=== PATIENT | female | born 1975 | race American Indian/Alaskan Native ===

== ENCOUNTER 2020-01-15 11:54 | Emergency (ER) | payer SELFPAY ==
[2020-01-15 12:47] VITALS: BP 152/96
--- NOTE | 2020-01-15 12:48 | Emergency Department Report ---
- General Chief Complaint: Upper Respiratory Infection Stated Complaint: COUGH Time Seen by Provider: 01/15/20 12:41 Source: patient Mode of arrival: Ambulatory Limitations: No Limitations - History of Present Illness Initial Comments: This is a pleasant 44-year-old female presents the emergency department chief complaint of cough, congestion, chest tightness over the past week. Patient denies any sick contacts. She denies any known past medical history, current medication use or known allergies to medications. She denies any associated fever, chills, night sweats, headache, dizziness, blurry vision, chest pain, shortness of breath, lower extremity edema, weakness, loss of taste or smell, nausea, vomiting, diarrhea or any other associated symptoms. - Related Data Previous Rx's Medication Instructions Recorded Last Taken Type RX: Hydrocodone Bit/Acetaminophen 1 each PO Q6H PRN #18 tablet 12/24/12 Unknown Rx [Lortab 10-500 mg] RX: Ibuprofen [Motrin 800 MG tab] 800 mg PO TID PRN #30 tablet 12/24/12 Unknown Rx RX: Penicillin Vk [Veetids TAB] 2 tab PO BID #40 tablet 12/24/12 Unknown Rx RX: Lidocaine Viscous 2% 20 ml MM Q6H #240 ml 12/28/12 Unknown Rx [Xylocaine Viscous 2%] Cyclobenzaprine HCl [Flexeril 5 MG 5 mg PO TID PRN #21 tab 10/17/15 Unknown Rx TAB] RX: Ibuprofen [Motrin 800 MG tab] 800 mg PO Q8HR PRN #30 tablet 10/17/15 Unknown Rx RX: predniSONE [Deltasone] 20 mg PO QDAY #10 tab 10/17/15 Unknown Rx Prednisone [predniSONE 10 mg 10 mg PO .TAPER #1 tab.ds.pk 01/15/20 Unknown Rx (6-Day Pack, 21 Tabs)] RX: Albuterol Sulfate [Proair 90 mcg IH Q6HR #1 aer.pow.ba 01/15/20 Unknown Rx Respiclick] RX: Azithromycin [Zithromax Z-JENNIFER] 0 mg PO DAILY #1 tab 01/15/20 Unknown Rx Allergies Allergy/AdvReac Type Severity Reaction Status Date / Time No Known Allergies Allergy Verified 12/28/12 11:58 ED Review of Systems ROS: Stated complaint: COUGH Other details as noted in HPI Comment: All other systems reviewed and negative Constitutional: denies: chills, fever Eyes: denies: eye pain, eye discharge, vision change ENT: denies: ear pain, throat pain Respiratory: see HPI, cough, wheezing. denies: shortness of breath Cardiovascular: denies: chest pain, palpitations Endocrine: no symptoms reported Gastrointestinal: denies: abdominal pain, nausea, diarrhea Genitourinary: denies: urgency, dysuria, discharge Musculoskeletal: denies: back pain, joint swelling, arthralgia Skin: denies: rash, lesions Neurological: denies: headache, weakness, paresthesias Psychiatric: denies: anxiety, depression Hematological/Lymphatic: denies: easy bleeding, easy bruising ED Past Medical Hx - Past Medical History Previous Medical History?: No - Surgical History Past Surgical History?: No - Social History Smoking Status: Current Every Day Smoker Substance Use Type: None - Medications Home Medications: Home Medications Medication Instructions Recorded Confirmed Last Taken Type RX: Hydrocodone Bit/Acetaminophen 1 each PO Q6H PRN #18 tablet 12/24/12 Unknown Rx [Lortab 10-500 mg] RX: Ibuprofen [Motrin 800 MG tab] 800 mg PO TID PRN #30 tablet 12/24/12 Unknown Rx RX: Penicillin Vk [Veetids TAB] 2 tab PO BID #40 tablet 12/24/12 Unknown Rx RX: Lidocaine Viscous 2% 20 ml MM Q6H #240 ml 12/28/12 Unknown Rx [Xylocaine Viscous 2%] Cyclobenzaprine HCl [Flexeril 5 MG 5 mg PO TID PRN #21 tab 10/17/15 Unknown Rx TAB] RX: Ibuprofen [Motrin 800 MG tab] 800 mg PO Q8HR PRN #30 tablet 10/17/15 Unknown Rx RX: predniSONE [Deltasone] 20 mg PO QDAY #10 tab 10/17/15 Unknown Rx Prednisone [predniSONE 10 mg 10 mg PO .TAPER #1 tab.ds.pk 01/15/20 Unknown Rx (6-Day Pack, 21 Tabs)] RX: Albuterol Sulfate [Proair 90 mcg IH Q6HR #1 aer.pow.ba 01/15/20 Unknown Rx Respiclick] RX: Azithromycin [Zithromax Z-JENNIFER] 0 mg PO DAILY #1 tab 01/15/20 Unknown Rx ED Physical Exam - General Limitations: No Limitations General appearance: alert, in no apparent distress - Head Head exam: Present: atraumatic, normocephalic - Eye Eye exam: Present: normal appearance, PERRL, EOMI Pupils: Present: normal accommodation - ENT ENT exam: Present: normal exam, normal orophraynx, mucous membranes moist - Neck Neck exam: Present: normal inspection, full ROM. Absent: tenderness, meningismus - Respiratory Respiratory exam: Present: wheezes (Bilateral expiratory wheezes without rhonchi, no increased work of breathing). Absent: respiratory distress, rales, rhonchi, stridor - Cardiovascular Cardiovascular Exam: Present: regular rate, normal rhythm, normal heart sounds. Absent: systolic murmur, diastolic murmur, rubs, gallop - GI/Abdominal GI/Abdominal exam: Present: soft, normal bowel sounds. Absent: distended, tenderness, guarding, rebound, rigid - Extremities Exam Extremities exam: Present: normal inspection, full ROM. Absent: tenderness, calf tenderness (No posterior calf tenderness, no lower extreme edema) - Back Exam Back exam: Present: normal inspection, full ROM. Absent: tenderness, CVA tenderness (R), CVA tenderness (L), muscle spasm - Neurological Exam Neurological exam: Present: alert, oriented X3, normal gait - Psychiatric Psychiatric exam: Present: normal affect, normal mood - Skin Skin exam: Present: warm, dry, intact, normal color. Absent: rash ED Course Vital Signs 01/15/20 01/15/20 12:01 12:47 Temperature 98.8 F Pulse Rate 112 H 98 H Respiratory 16 Rate Blood Pressure 152/96 O2 Sat by Pulse 96 Oximetry ED Medical Decision Making - Radiology Data Radiology results: report reviewed XRay Report Signed Patient: ANAY BURRIS MR#: [id number] : 1975 Acct:[id number] Age/Sex: 44 / F ADM Date: 01/15/20 Loc: ED Attending Dr: Ordering Physician: KUSH TAVERA Date of Service: 01/15/20 Procedure(s): XR chest routine 2V Accession Number(s): [id number] cc: KUSH TAVERA Fluoro Time In Minutes: CHEST 2 VIEWS INDICATION: cough, congestion. COMPARISON: None FINDINGS: Support devices: None. Heart: Within normal limits. Lungs/pleura: No acute air space or interstitial disease. No pneumothorax. Additional findings: None. IMPRESSION: Normal chest x-ray Signer Name: Danie Gilbert Jr, MD Signed: 01/15/2020 1:13 PM Workstation Name: [id number] Transcribed By: TIARA Dictated By: DANIE GILBERT JR, MD Electronically Authenticated By: DANIE GILBERT JR, MD Signed Date/Time: 01/15/20 1313 - Medical Decision Making This pleasant 44-year-old female presents the emergency department chief complaint of cough. She had some mild expiratory wheezing on her exam. X-ray was clear with no signs of pneumonia. She had a low risk by Wells criteria for PE and no pleuritic pain, hypoxia. We will treat the patient with inhaler, steroid and a short course of antibiotics and recommended outpatient follow-up with her primary care doctor. Patient had no known risk for Covid exposure but was educated that we could not test for Covid and she need to follow-up with her primary care doctor for this. She is instructed to return the [facility] department he develops any change or worsening symptoms. She verbalized understand the diagnosis, treatment plan and follow-up instructions and all of her questions were answered. - Differential Diagnosis Bronchitis, pneumonia, COVID-19 Critical care attestation.: If time is entered above; I have spent that time in minutes in the direct care of this critically ill patient, excluding procedure time. ED Disposition Clinical Impression: Acute bronchitis Qualifiers: Bronchitis organism: unspecified organism Qualified Code(s): J20.9 - Acute bronchitis, unspecified Disposition: DC-01 TO HOME OR SELFCARE Is pt being admited?: No Condition: Stable Instructions: Acute Bronchitis (ED), Acute Bronchitis, Adult Prescriptions: Prednisone [predniSONE 10 mg (6-Day Pack, 21 Tabs)] 10 mg PO .TAPER #1 tab.ds.pk RX: Albuterol Sulfate [Proair Respiclick] 90 mcg IH Q6HR #1 aer.pow.ba RX: Azithromycin [Zithromax Z-JENNIFER] 0 mg PO DAILY #1 tab Referrals: [facility] [Provider Group] - 3-5 Days Forms: Work/School Release Form(ED) Time of Disposition: 13:24
--- NOTE | 2020-01-15 13:17 | XRay Report ---
CHEST 2 VIEWS INDICATION: cough, congestion. COMPARISON: None FINDINGS: Support devices: None. Heart: Within normal limits. Lungs/pleura: No acute air space or interstitial disease. No pneumothorax. Additional findings: None. IMPRESSION: Normal chest x-ray Signer Name: Danie Jimenes Jr, MD Signed: 01/15/2020 1:13 PM Workstation Name: [id number]
== END 2020-01-15 13:27 | disposition home or self-care (01) ==
LOC: ED 11:54
DX: J20.9 Acute bronchitis, unspecified (principal); F17.200 Nicotine dependence, unspecified, uncomplicated; Z79.899 Other long term (current) drug therapy
CPT/HCPCS: 71046

== ENCOUNTER 2020-07-08 17:20 | Emergency (ER) | payer SELFPAY ==
--- NOTE | 2020-07-08 20:05 | XRay Report ---
XR ankle 3+V LT, XR foot 3+V LT INDICATION / CLINICAL INFORMATION: fall. COMPARISON: None available. FINDINGS: Left ankle: No acute fracture or malalignment. Mild circumferential soft tissue swelling. Left foot: Acute mildly displaced oblique fracture involving the distal left fifth metatarsal shaft. No additional fracture. No joint malalignment. Lisfranc interval is preserved. There is soft tissue s welling about the foot. IMPRESSION: Acute left fifth metatarsal shaft fracture. Signer Name: Ramón Interiano MD Signed: 07/08/2020 8:01 PM Workstation Name: [id number]
[2020-07-08] MEDS ORDERED: ACETAMINOPHEN 500 MG TAB PO ONE (20:16)
[2020-07-08] MEDS ORDERED: IBUPROFEN 800 MG TAB PO ONE (20:16)
--- NOTE | 2020-07-08 20:17 | Emergency Department Report ---
ED Lower Extremity HPI - General Chief Complaint: Extremity Injury, Lower Stated Complaint: FALL/L FOOT INJURY Time Seen by Provider: 07/08/20 19:47 Source: patient Mode of arrival: Ambulatory Limitations: No Limitations - History of Present Illness MD Complaint: ankle injury, foot injury - Related Data Previous Rx's Medication Instructions Recorded Last Taken Type Hydrocodone Bit/Acetaminophen 1 each PO Q6H PRN #18 tablet 12/24/12 Unknown Rx [Lortab 10-500 mg] Ibuprofen [Motrin 800 MG tab] 800 mg PO TID PRN #30 tablet 12/24/12 Unknown Rx Penicillin Vk [Veetids TAB] 2 tab PO BID #40 tablet 12/24/12 Unknown Rx Lidocaine Viscous 2% [Xylocaine 20 ml MM Q6H #240 ml 12/28/12 Unknown Rx Viscous 2%] Cyclobenzaprine HCl [Flexeril 5 MG 5 mg PO TID PRN #21 tab 10/17/15 Unknown Rx TAB] Ibuprofen [Motrin 800 MG tab] 800 mg PO Q8HR PRN #30 tablet 10/17/15 Unknown Rx predniSONE [Deltasone] 20 mg PO QDAY #10 tab 10/17/15 Unknown Rx Albuterol Sulfate [Proair 90 mcg IH Q6HR #1 aer.pow.ba 01/15/20 Unknown Rx Respiclick] Azithromycin [Zithromax Z-JENNIFER] 0 mg PO DAILY #1 tab 01/15/20 Unknown Rx Prednisone [predniSONE 10 mg 10 mg PO .TAPER #1 tab.ds.pk 01/15/20 Unknown Rx (6-Day Pack, 21 Tabs)] Allergies Allergy/AdvReac Type Severity Reaction Status Date / Time No Known Allergies Allergy Verified 12/28/12 11:58 ED Review of Systems ROS: Stated complaint: FALL/L FOOT INJURY Other details as noted in HPI ED Past Medical Hx - Past Medical History Additional medical history: bronchitis - Surgical History Past Surgical History?: No - Social History Smoking Status: Current Some Day Smoker - Medications Home Medications: Home Medications Medication Instructions Recorded Confirmed Last Taken Type Hydrocodone Bit/Acetaminophen 1 each PO Q6H PRN #18 tablet 12/24/12 Unknown Rx [Lortab 10-500 mg] Ibuprofen [Motrin 800 MG tab] 800 mg PO TID PRN #30 tablet 12/24/12 Unknown Rx Penicillin Vk [Veetids TAB] 2 tab PO BID #40 tablet 12/24/12 Unknown Rx Lidocaine Viscous 2% [Xylocaine 20 ml MM Q6H #240 ml 12/28/12 Unknown Rx Viscous 2%] Cyclobenzaprine HCl [Flexeril 5 MG 5 mg PO TID PRN #21 tab 10/17/15 Unknown Rx TAB] Ibuprofen [Motrin 800 MG tab] 800 mg PO Q8HR PRN #30 tablet 10/17/15 Unknown Rx predniSONE [Deltasone] 20 mg PO QDAY #10 tab 10/17/15 Unknown Rx Albuterol Sulfate [Proair 90 mcg IH Q6HR #1 aer.pow.ba 01/15/20 Unknown Rx Respiclick] Azithromycin [Zithromax Z-JENNIFER] 0 mg PO DAILY #1 tab 01/15/20 Unknown Rx Prednisone [predniSONE 10 mg 10 mg PO .TAPER #1 tab.ds.pk 01/15/20 Unknown Rx (6-Day Pack, 21 Tabs)] ED Physical Exam - General Limitations: No Limitations ED Course Vital Signs 07/08/20 19:31 Temperature 98.6 F Pulse Rate 71 Respiratory 16 Rate Blood Pressure 175/87 O2 Sat by Pulse 100 Oximetry ED Lower Extremity MDM - Radiology Data Radiology results: report reviewed Patient: ANAY BURRIS MR#: [id number] : 1975 Acct:[id number] Age/Sex: 45 / F ADM Date: 07/08/20 Loc: ED Attending Dr: Ordering Physician: ANTONIO KEARNS MD Date of Service: 07/08/20 Procedure(s): XR ankle 3+V LT Accession Number(s): [id number] cc: ED MD URMILA Fluoro Time In Minutes: XR ankle 3+V LT, XR foot 3+V LT INDICATION / CLINICAL INFORMATION: fall. COMPARISON: None available. FINDINGS: Left ankle: No acute fracture or malalignment. Mild circumferential soft tissue swelling. Left foot: Acute mildly displaced oblique fracture involving the distal left fifth metatarsal shaft. No additional fracture. No joint malalignment. Lisfranc interval is preserved. There is soft tissue swelling about the foot. IMPRESSION: Acute left fifth metatarsal shaft fracture. Signer Name: Keren Serrato MD Signed: 07/08/2020 8:01 PM Workstation Name: [id number] Transcribed By: JS Dictated By: KEREN SERRATO MD Electronically Authenticated By: KEREN SERRATO MD Signed Date/Time: 07/08/202000 DD/ 58 TD/TT: Critical care attestation.: If time is entered above; I have spent that time in minutes in the direct care of this critically ill patient, excluding procedure time. ED Disposition Condition: Stable Referrals: PRIMARY CARE, [Primary Care Provider] - 3-5 Days
--- NOTE | 2020-07-08 20:44 | Emergency Department Report ---
ED Lower Extremity HPI - General Chief Complaint: Extremity Injury, Lower Stated Complaint: FALL/L FOOT INJURY Time Seen by Provider: 07/08/20 19:47 Source: patient Mode of arrival: Ambulatory Limitations: No Limitations - History of Present Illness Initial Comments: 45-year-old morbidly obese -[place] female presents [facility] department complaining of pain to the left foot after a trip and fall while going up a step/curb on yesterday resulting in a fall and then pain and swelling to the left foot. Pain is dull and throbbing worse with palpation range of motion. Reports no numbness or tingling. Ports no fever, chills, sweats but no head trauma no loss of consciousness - Related Data Previous Rx's Medication Instructions Recorded Last Taken Type Hydrocodone Bit/Acetaminophen 1 each PO Q6H PRN #18 tablet 12/24/12 Unknown Rx [Lortab 10-500 mg] Ibuprofen [Motrin 800 MG tab] 800 mg PO TID PRN #30 tablet 12/24/12 Unknown Rx Penicillin Vk [Veetids TAB] 2 tab PO BID #40 tablet 12/24/12 Unknown Rx Lidocaine Viscous 2% [Xylocaine 20 ml MM Q6H #240 ml 12/28/12 Unknown Rx Viscous 2%] Cyclobenzaprine HCl [Flexeril 5 MG 5 mg PO TID PRN #21 tab 10/17/15 Unknown Rx TAB] Ibuprofen [Motrin 800 MG tab] 800 mg PO Q8HR PRN #30 tablet 10/17/15 Unknown Rx predniSONE [Deltasone] 20 mg PO QDAY #10 tab 10/17/15 Unknown Rx Albuterol Sulfate [Proair 90 mcg IH Q6HR #1 aer.pow.ba 01/15/20 Unknown Rx Respiclick] Azithromycin [Zithromax Z-JENNIFER] 0 mg PO DAILY #1 tab 01/15/20 Unknown Rx Prednisone [predniSONE 10 mg 10 mg PO .TAPER #1 tab.ds.pk 01/15/20 Unknown Rx (6-Day Pack, 21 Tabs)] Acetaminophen/Codeine [Tylenol 1 tab PO Q6H PRN #10 tab 07/08/20 Unknown Rx /Codeine # 3 tab] Allergies Allergy/AdvReac Type Severity Reaction Status Date / Time No Known Allergies Allergy Verified 12/28/12 11:58 ED Review of Systems ROS: Stated complaint: FALL/L FOOT INJURY Other details as noted in HPI Comment: All other systems reviewed and negative ED Past Medical Hx - Past Medical History Additional medical history: bronchitis - Surgical History Past Surgical History?: No - Social History Smoking Status: Current Some Day Smoker - Medications Home Medications: Home Medications Medication Instructions Recorded Confirmed Last Taken Type Hydrocodone Bit/Acetaminophen 1 each PO Q6H PRN #18 tablet 12/24/12 Unknown Rx [Lortab 10-500 mg] Ibuprofen [Motrin 800 MG tab] 800 mg PO TID PRN #30 tablet 12/24/12 Unknown Rx Penicillin Vk [Veetids TAB] 2 tab PO BID #40 tablet 12/24/12 Unknown Rx Lidocaine Viscous 2% [Xylocaine 20 ml MM Q6H #240 ml 12/28/12 Unknown Rx Viscous 2%] Cyclobenzaprine HCl [Flexeril 5 MG 5 mg PO TID PRN #21 tab 10/17/15 Unknown Rx TAB] Ibuprofen [Motrin 800 MG tab] 800 mg PO Q8HR PRN #30 tablet 10/17/15 Unknown Rx predniSONE [Deltasone] 20 mg PO QDAY #10 tab 10/17/15 Unknown Rx Albuterol Sulfate [Proair 90 mcg IH Q6HR #1 aer.pow.ba 01/15/20 Unknown Rx Respiclick] Azithromycin [Zithromax Z-JENNIFER] 0 mg PO DAILY #1 tab 01/15/20 Unknown Rx Prednisone [predniSONE 10 mg 10 mg PO .TAPER #1 tab.ds.pk 01/15/20 Unknown Rx (6-Day Pack, 21 Tabs)] Acetaminophen/Codeine [Tylenol 1 tab PO Q6H PRN #10 tab 07/08/20 Unknown Rx /Codeine # 3 tab] ED Physical Exam - General Limitations: No Limitations General appearance: alert, in no apparent distress - Head Head exam: Present: atraumatic, normocephalic - Eye Eye exam: Present: normal appearance - ENT ENT exam: Present: mucous membranes moist - Neck Neck exam: Present: normal inspection - Respiratory Respiratory exam: Present: normal lung sounds bilaterally. Absent: respiratory distress - Cardiovascular Cardiovascular Exam: Present: regular rate, normal rhythm. Absent: systolic murmur, diastolic murmur, rubs, gallop - GI/Abdominal GI/Abdominal exam: Present: soft, normal bowel sounds - Extremities Exam Extremities exam: Present: normal inspection, tenderness (Tenderness to the left foot with palpation. Pulses 2+ cap refills are brisk. Pain with range of motion. The tenderness to the base of the fifth metatarsal. No evidence of pain to the proximal fibula) - Back Exam Back exam: Present: normal inspection. Absent: CVA tenderness (R) - Neurological Exam Neurological exam: Present: alert, oriented X3, CN II-XII intact - Psychiatric Psychiatric exam: Present: normal affect, normal mood - Skin Skin exam: Present: warm, dry, intact, normal color. Absent: rash ED Course Vital Signs 07/08/20 19:31 Temperature 98.6 F Pulse Rate 71 Respiratory 16 Rate Blood Pressure 175/87 O2 Sat by Pulse 100 Oximetry - Orthopedic Splinting/Casting Injury #1 Side: left Lower Extremity Injury Location: foot Lower Extremity Immobilizer: posterior splint Other Orthopedic Equipment: crutches Critical care attestation.: If time is entered above; I have spent that time in minutes in the direct care of this critically ill patient, excluding procedure time. ED Disposition Clinical Impression: Fracture of fifth metatarsal bone Disposition: DC-01 TO HOME OR SELFCARE Is pt being admited?: No Does the pt Need Aspirin: No Condition: Stable Instructions: Cast or Splint Care, Adult, [id number], Metatarsal Fracture Rehab-SportsMed, Metatarsal Fracture Additional Instructions: Patient to follow-up with orthopedic doctor for definitive treatment of your foot fracture as you may need to be fitted for a walking boot or for cast. Plea se note to refrain from any weightbearing until cleared by orthopedic Prescriptions: Acetaminophen/Codeine [Tylenol /Codeine # 3 tab] 1 tab PO Q6H PRN #10 tab PRN Reason: Pain , Severe (7-10) Referrals: PRIMARY CAREMD [Primary Care Provider] - 3-5 Days ENEDINA CALDERON MD [Staff Physician] - 3-5 Days
[2020-07-08 21:11] VITALS: BP 132/69
== END 2020-07-08 21:00 | disposition home or self-care (01) ==
LOC: ED 17:20
DX: S92.352A Displaced fracture of fifth metatarsal bone, left foot, initial encounter for closed fracture (principal); F17.200 Nicotine dependence, unspecified, uncomplicated; Z79.899 Other long term (current) drug therapy; W10.8XXA Fall (on) (from) other stairs and steps, initial encounter; Y93.89 Activity, other specified; Y92.89 Other specified places as the place of occurrence of the external cause; Y99.8 Other external cause status
CPT/HCPCS: 99283